=== PATIENT | male | born 1950 | race African-American/Black ===

== ENCOUNTER → 2017-09-18 | Day surgery (SDC) | payer MEDICARE, OTHER ==
[2017-09-17 16:12] LABS: BASOPHILS % 0.1 % (0.0-1.0); EOSINOPHILS # (AUTO) 0.1 (0.0-0.4); EOSINOPHILS % 1.6 % (0.0-6.0); HEMATOCRIT 38.5 % (38.2-49.6); HEMOGLOBIN 12.9 g/dL (14.0-18.0); LYMPHOCYTES # (AUTO) 1.1 (1.0-3.2); LYMPHOCYTES % 14.4 % (18.0-39.1); MEAN CORPUSCULAR HEMOGLOBIN 28.4 pg (28-32); MEAN CORPUSCULAR HGB CONC 33.5 g/dL (31-35); MEAN CORPUSCULAR VOLUME 84.8 fL (81-99); MONOCYTES # (AUTO) 0.5 (0.2-0.8); MONOCYTES % 6.4 % (4.4-11.3); NEUTROPHILS # (AUTO) 5.7 (2.1-6.9); NEUTROPHILS % 77.4 % (38.7-80.0); PLATELET COUNT 257 x10e3/uL (140-360); RED BLOOD COUNT 4.54 x10e6/uL (4.3-5.7); RED CELL DISTRIBUTION WIDTH 15.8 % (11.7-14.4)
--- NOTE | 2017-09-17 16:31 | Diagnostic Imaging Report ---
PROCEDURE: Frontal and lateral views of the chest. COMPARISON: None. INDICATIONS: PRE OPERATIVE CHEST XRAY FOR CYSTOSCOPY FINDINGS: Lines/tubes: None. Lungs: The lungs are well inflated and clear. Platelike atelectasis in the left lung base. There is no evidence of pneumonia or pulmonary edema. Pleura: There is no pleural effusion or pneumothorax. Heart and mediastinum: The heart and the mediastinum are normal. Bones: No acute bony abnormality. Smooth anterior bridging disc osteophyte, which can be seen in DISH or ankylosing spondylitis. IMPRESSION: No acute cardiopulmonary disease. Dictated by: Tai Saleh M.D. on 09/17/2017 at 16:31 Electronically approved by: Tai Saleh M.D. on 09/17/2017 at 16:31 Electronically approved by: Tai Saleh M.D. on 09/17/2017 at 16:33
[2017-09-17 16:33] LABS: ANION GAP 13.3 mmol/L (8-16); BLOOD UREA NITROGEN 15 mg/dL (7-26); BUN/CREATININE RATIO 18 (6-25); CALCIUM 9.7 mg/dL (8.4-10.2); CARBON DIOXIDE 27 mmol/L (22-29); CHLORIDE 104 mmol/L (98-107); CREATININE, SERUM 0.82 mg/dL (0.72-1.25); EST GLOMERULAR FILTRATION RATE > 60 ML/MIN (60-); GLUCOSE 91 mg/dL (74-118); POTASSIUM 4.3 mmol/L (3.5-5.1); SODIUM 140 mmol/L (136-145)
[~2017-09-18] MED LIST: AMLODIPINE-BEN1 EAC5 PO; CEFTRIAXONE SOD 1 GM VIAL ONE; DEXAMETHASONE SOD PHOS INJ 4 MG/ML VIAL ONE; FUROSEMIDE40 MG PO; IOPAMIDOL 610MG/1ML 300 MG/ML VIAL IV ONE; LIDOCAINE HCL 2% LOCAL INJ 5 ML SDV VIAL INJ ONE; MELOXICAM PO; MIDAZOLAM HCL 2 MG/2 ML VIAL ONE; ONDANSETRON HCL INJ 2 MG/ML VIAL ONE; PROPOFOL IV EMULSION 10 MG/ML 20 ML VIAL ONE; SEVOFLURANE INHAL SOLN 250 ML PEN BTL ONE
--- OUTSIDE RECORDS SUMMARY | 2017-09-18 10:45 | XMS REPORT ---
Author Author [facility] Address Unknown Phone Unavailable Care Team Providers Care Arabic Translator Name Role Phone AIME CHRISTIANSON Unavailable Unavailable Problems This patient has no known problems. Allergies, Adverse Reactions, Alerts This patient has no known allergies or adverse reactions. Medications This patient has no known medications. Results Test Description Test Time Test Comments Text Results Atomic Results Result Comments CHEST 2 VIEWS [place] [address] Patient Name: VINEET KOLB SR MR #: [id number] : 1950 Age/Sex: 67/M Req #: [id number] Adm Physician: Ordered by: AIME CHRISTIANSON MD Report #: [id number] Location: OR Room/Bed: Procedure: [id number] DX/CHEST 2 VIEWS Exam Date: 09/17/17 Exam Time: 1615 REPORT STATUS: Signed PROCEDURE: Frontal and lateral views of the chest. COMPARISON: None. INDICATIONS: PRE OPERATIVE CHEST XRAY FOR CYSTOSCOPY FINDINGS: Lines/tubes: None. Lungs: The lungs are well inflated and clear. Platelike atelectasis in the left lung base. There is no evidence of pneumonia or pulmonary edema. Pleura: There is no pleural effusion or pneumothorax. Heart and mediastinum: The heart and the mediastinum are normal. Bones: No acute bony abnormality. Smooth anterior bridging disc osteophyte, which can be seen in DISH or ankylosing spondylitis. IMPRESSION: No acute cardiopulmonary disease. Dictated by: Emely Saleh M.D. on 09/17/2017 at 16: 31 Electronically approved by: Emely Saleh M.D. on 09/17/2017 at 16:31 Electronically approved by: Emely Saleh M.D. on 09/17/2017 at 16:33 Dictated By: EMELY SALEH MD [id number] Transcribed By: MAGDALENA on 09/17/17 1633 COPY TO: AIME CHRISTIANSON MD
--- NOTE | 2017-09-22 08:00 | Operative Report ---
DATE OF PROCEDURE: September 18, 2017 PREOPERATIVE DIAGNOSES 1. Hematuria. 2. Prostate cancer. POSTOPERATIVE DIAGNOSES 1. Hematuria. 2. Prostate cancer. 3. Urethral stricture disease. OPERATIVE PROCEDURE PERFORMED: Cystoscopy. ANESTHESIA: General. ESTIMATED BLOOD LOSS: Minimal. INDICATIONS: Mr. Ned Guaman is a 67-year-old gentleman with a known locally advanced prostate cancer recently presented with gross hematuria and dysuria. Despite adequate treatment for urinary tract infection, his hematuria persists. Upper tracts which were previously evaluated revealed no obvious disease. He now presents for cystoscopy. PROCEDURE IN DETAIL: The patient was brought into the operating room and placed in the supine position. After administration of general anesthesia, he was prepped and draped in the usual sterile fashion. Cystourethroscopy was performed using a flexible cystoscope. The anterior and posterior urethra were most significant for tight urethral stricture disease noted in the bulb. This was approximately 5-6-Liberian in diameter. This was dilated with the scope itself. The prostate was surgically absent. The bladder neck was otherwise open. The sphincter function appeared poor. Upon entrance into the bladder, there was significant neovascularities seen in the region of the trigone and the bladder neck. The remainder of the bladder mucosa was otherwise unremarkable. In general though, it was fairly pale. There was no papillary lesions noted. The ureteral orifices were in their normal anatomic position and produced grossly clear efflux. The cystoscope and sheath were then removed. The bladder drained in its entirety. Anesthesia was reversed, and he was transferred to a bed and taken to the postanesthesia care unit in good condition. Of note, the needle and instrument counts were correct at the conclusion of the case. Job#: [id number] LUIS
== END | disposition home or self-care (01) ==
LOC: OR 10:43
PROVIDERS: ATTEND Urology
DX: N35.9 Urethral stricture, unspecified (principal); C61 Malignant neoplasm of prostate; I10 Essential (primary) hypertension; Z01.810 Encounter for preprocedural cardiovascular examination; Z01.812 Encounter for preprocedural laboratory examination; Z01.818 Encounter for other preprocedural examination; Z68.42 Body mass index [BMI] 45.0-49.9, adult; Z80.9 Family history of malignant neoplasm, unspecified
CPT/HCPCS: 36415; 52000; 71046; 80048; 85025; 93005; J0696; J1100; J2001; J2250; J2405